=== PATIENT | male | born 1955 | race Caucasian/White ===

== ENCOUNTER 2021-10-10 10:30 | Inpatient (IN) | payer MEDICARE ==
[~2021-10-10] VITALS: Ht 175.3 cm; Wt 122.0 kg
[2021-10-10] MEDS ORDERED: IV NS 0.9% 1,000 ML BAG IV ONE (11:00)
[2021-10-10 11:25] LABS: BASOPHILS # (AUTO) 0.1 K/uL (0.0-0.2); BASOPHILS % (AUTO) 0.5 % (0.0-2.0); EOSINOPHILS % (AUTO) 0.4 % (0.0-6.0); HEMATOCRIT 42 % (39-51); LYMPHOCYTES % (AUTO) 5.7 % (20.0-44.0); MEAN CORPUSCULAR HGB CONC 33 g/dl (31.0-36.0); MEAN CORPUSCULAR VOLUME 93 fL (80-96); NEUTROPHILS % (AUTO) 87.4 % (43.0-81.0); PLATELET COUNT (AUTO) 225 K/uL (150-450); RED BLOOD CELL COUNT(AUTO) 4.55 MIL/uL (4.5-6.0); WHITE BLOOD COUNT (AUTO) 17.1 K/uL (4.3-11.0)
[2021-10-10 11:33] LABS: CALCIUM, SERUM 9.2 mg/dL (8.5-10.1); CARBON DIOXIDE 28 mmol/L (21-32); CHLORIDE 103 mmol/L (98-107); CREATININE 1.1 mg/dL (0.6-1.3); GLUCOSE 119 mg/dL (74-106); POTASSIUM 3.6 mmol/L (3.5-5.1); SODIUM SERUM 139 mmol/L (136-145); UREA NITROGEN, BLOOD 17 mg/dL (7-18)
[2021-10-10] MEDS ORDERED: IOHEXOL-300 100 ML VIAL IV ONE (11:35)
[2021-10-10] MEDS ORDERED: IV NS 0.9% 250 ML IV ONE (11:36)
[2021-10-10] MEDS ORDERED: CT SWABBABLE VALVE TRANS SET 1 EA INFUS.SET MC ONE (11:36)
[2021-10-10 11:40] LABS: ALANINE AMINOTRANSFERASE 39 U/L (12-78); ALBUMIN 3.5 g/dL (3.4-5.0); ALKALINE PHOSPHATASE 53 U/L (46-116); ASPARTATE AMINOTRANSFERASE 33 U/L (15-37); BILIRUBIN,DIRECT 0.1 mg/dL (0.0-0.2); BILIRUBIN,TOTAL 0.5 mg/dL (0.2-1.0); LIPASE 92 U/L (73-393); TOTAL PROTEIN, SERUM 6.8 g/dL (6.4-8.2)
[2021-10-10] MEDS ORDERED: FENTANYL PF 100MCG/2ML AMPUL ONE (12:24)
[2021-10-10] MEDS ORDERED: FENTANYL PF 100MCG/2ML AMPUL IV ONE (12:30)
[2021-10-10] MEDS ORDERED: ONDANSETRON HCL/PF 4 MG/2 ML VIAL IVP PRN (14:30)
[2021-10-10] MEDS ORDERED: IV NS 0.9% 1,000 ML IV PRN ×2 (14:30→14:36)
[2021-10-10] MEDS ORDERED: MAGNESIUM HYDROXIDE 30 ML UDC PO PRN (14:30)
[2021-10-10] MEDS ORDERED: ACETAMINOPHEN 325 MG TABLET PO PRN (14:30)
[2021-10-10] MEDS ORDERED: MORPHINE SULFATE INJ 2 MG/ML DISP.SYRIN IV PRN (14:30)
[2021-10-10] MEDS ORDERED: Z GUARD REMEDY 2 OZ OINT TP PRN (14:30)
[2021-10-10] MEDS ORDERED: MAG HYDROX/AL HYDROX/SIMETH 30 ML UDC PO PRN (14:30)
[2021-10-10] MEDS ORDERED: CHLO25TA2 PO (14:32)
[2021-10-10] MEDS ORDERED: LOSA50TA39 PO (14:32)
[2021-10-10] MEDS ORDERED: TADA5TAB13 PO (14:32)
[2021-10-10] MEDS ORDERED: ATOR10TA PO (14:32)
[2021-10-10] MEDS ORDERED: METO50TA16 PO (14:32)
[2021-10-10 17:32] VITALS: BP 139/72
[2021-10-10] MEDS ORDERED: ATORVASTATIN 10 MG TABLET PO SCH (18:00)
[2021-10-10] MEDS: HYDROCODONE/APAP 5/325MG TABLET PO PRN ×2 (18:20→22:28)
[2021-10-10 18:23] VITALS: BP 139/72
[2021-10-10 20:00] VITALS: BP 142/81
[2021-10-10] MEDS ORDERED: CYCLOBENZAPRINE 10 MG TABLET PO PRN (22:30)
[2021-10-11] VITALS: BP 110/54
[2021-10-11] MEDS: HYDROCODONE/APAP 5/325MG TABLET PO PRN ×2 (02:28→11:59)
[2021-10-11 04:00] VITALS: BP 104/45
[2021-10-11 06:53] LABS: BASOPHILS % (AUTO) 0.3 % (0.0-2.0); EOSINOPHILS % (AUTO) 1.9 % (0.0-6.0); HEMATOCRIT 34 % (39-51); HEMOGLOBIN 11.9 g/dL (13.5-17.5); LYMPHOCYTES # (AUTO) 1.2 K/uL (0.8-4.8); LYMPHOCYTES % (AUTO) 16.7 % (20.0-44.0); MEAN CORPUSCULAR HGB CONC 35 g/dl (31.0-36.0); MEAN CORPUSCULAR VOLUME 93 fL (80-96); NEUTROPHILS # (AUTO) 4.8 K/uL (1.8-8.9); NEUTROPHILS % (AUTO) 67.1 % (43.0-81.0); PLATELET COUNT (AUTO) 165 K/uL (150-450); RED BLOOD CELL COUNT(AUTO) 3.64 MIL/uL (4.5-6.0); WHITE BLOOD COUNT (AUTO) 7.2 K/uL (4.3-11.0)
[2021-10-11 07:12] LABS: CREATININE 1.1 mg/dL (0.6-1.3); MAGNESIUM 1.9 mg/dL (1.8-2.4); PHOSPHORUS 4.1 mg/dL (2.5-4.9); POTASSIUM 3.2 mmol/L (3.5-5.1)
[2021-10-11 07:29] LABS: THYROID STIMULATING HORMONE 1.668 uIU/mL (0.358-3.74)
[2021-10-11 08:00] VITALS: BP 129/64
[2021-10-11] MEDS ORDERED: Medication Not On Formulary EA (Tadalafil 5 MG) PO SCH (09:00)
[2021-10-11] MEDS ORDERED: POTASSIUM CHLORIDE 20 MEQ TAB.PRT.SR PO ONE (09:30)
[2021-10-11] MEDS ORDERED: CYCL10TA9 PO (12:07)
== END 2021-10-11 13:15 | disposition home or self-care (01) | DRG 552 ==
LOC: ER 10:30 → TELE 17:05
PROVIDERS: ADMIT Registered Nurse; ATTEND Registered Nurse
DX: S32.019A Unspecified fracture of first lumbar vertebra, initial encounter for closed fracture (principal); S22.41XA Multiple fractures of ribs, right side, initial encounter for closed fracture; S32.039A Unspecified fracture of third lumbar vertebra, initial encounter for closed fracture; S32.049A Unspecified fracture of fourth lumbar vertebra, initial encounter for closed fracture; E78.5 Hyperlipidemia, unspecified; N40.0 Benign prostatic hyperplasia without lower urinary tract symptoms; D72.829 Elevated white blood cell count, unspecified; I10 Essential (primary) hypertension; E83.119 Hemochromatosis, unspecified; Z68.39 Body mass index [BMI] 39.0-39.9, adult; S32.059A Unspecified fracture of fifth lumbar vertebra, initial encounter for closed fracture; V43.52XA Car driver injured in collision with other type car in traffic accident, initial encounter; Y93.9 Activity, unspecified; S30.1XXA Contusion of abdominal wall, initial encounter; S20.211A Contusion of right front wall of thorax, initial encounter; S60.512A Abrasion of left hand, initial encounter; S80.212A Abrasion, left knee, initial encounter; Z20.822 Contact with and (suspected) exposure to COVID-19; I95.9 Hypotension, unspecified; E66.01 Morbid (severe) obesity due to excess calories; Y92.410 Unspecified street and highway as the place of occurrence of the external cause
CPT/HCPCS: 36415; 71045-TC; 71260-TC; 73130-TC; 80048-TC; 80076-TC; 83690-TC; 83735-TC; 84100-TC; 84443-TC; 84484-TC; 85025-TC; 97116-TC; 97530-TC; C9803; G0378; J3010; J7030; J7050; Q9967